=== PATIENT | male | born 1960 | race Caucasian/White ===

== ENCOUNTER 2017-09-10 11:34 | Emergency (ER) | payer BC, SELFPAY ==
[2017-09-10 11:36] VITALS: BP 110/69; PULSE 92; RESP 17; TEMP 37.1; O2SAT 97; BMI 29.2
--- NOTE | 2017-09-10 11:57 | EKG12_ITS ---
Test Reason : SYNCOPE Blood Pressure : / mmHG Vent. Rate : 093 BPM Atrial Rate : 093 BPM P-R Int : 148 ms QRS Dur : 100 ms QT Int : 368 ms P-R-T Axes : 028 -14 -12 degrees QTc Int : 457 ms Normal sinus rhythm ST & T wave abnormality, consider lateral ischemia Abnormal ECG Confirmed by TAM PACE, MARIA ISABEL ([id number]), editor at large YVON POOL ([id number] on 09/13/2017 2:53:49 PM Referred By: [email or web address] Confirmed By:MARIA ISABEL TURCIOS MD
[2017-09-10] MEDS: Ondansetron 4 MG/2 ML Vial IV (12:02)
[2017-09-10] MEDS: 0.9% Normal Saline 1,000 ML 1000 ML IV (12:02)
[2017-09-10] MEDS: Dicyclomine 20 MG/2 ML Vial IM (12:03)
[2017-09-10 12:08] LABS: Absolute Lymphocyte Count 0.33 X10^3/ul (0.83-4.51); Absolute Neutrophil Count 8.9 X10^3/uL (2.0-7.7); Basophil# 0.01 X10^3/uL; Basophil% 0.1 % (0-1); Differential Indicated SCAN CRITERIA MET; Eosinophil# 0.01 X10^3/uL; Eosinophils% 0.1 % (0-5); Hematocrit 44.6 % (40-54); Lymphocyte # 0.33 X10^3/ul (4.0); Lymphocyte % 3.3 % (19-41); Mean Corp Hgb Conc 33.6 g/gl (32-36); Mean Corpuscular Hgb 30.7 pg (27.0-32.0); Mean Corpuscular Volume 91.2 fL (80-94); Mean Platelet Vol. 9.3 fl (6.2-12.0); Monocyte# 0.64 X10^3/uL; Monocyte% 6.5 % (0-10); Neutrophil % 89.9 % (47-70); POSITIVE COUNT NO; POSITIVE DIFFERENTIAL YES; POSITIVE MORPHOLOGY NO; Platelet Count 169 K/mm3 (150-450); RBC Distribution Width CV 12.9 % (11.6-14.6); Red Blood Count 4.89 M/mm3 (4.6-6.2); White Blood Count 9.9 K/mm3 (4.4-11.0)
[2017-09-10 12:18] LABS: Anion Gap 11 (5-15); BUN 20 mg/dL (7-18); BUN/Creat Ratio 18.7 RATIO (10-20); Chloride 109 mmol/L (98-107); Creatinine, Serum 1.07 mg/dL (0.70-1.30); EST Glomerular Filtration Rate 76 mL/min (>60); Est Glom Filt Rate - Afr Amer 92 mL/min (>60); Glucose 155 mg/dL (74-106); Potassium 3.9 mmol/L (3.5-5.1); Sodium Level 139 mmol/L (136-145)
[2017-09-10 12:38] VITALS: BP 114/70; PULSE 89; RESP 16; O2SAT 97
--- NOTE | 2017-09-10 12:38 | ED.VISSUMM ---
- ER Visit Summary Date of Service: 09/10/17 Chief Complaint: Syncope History of Present Illness: The patient is a 56 M who states he worked outside in the heat all weekend. He developed diarrhea last night. After having diarrhea at work today he felt cold, clammy, sweaty, and had tunnel vision. He fell to 1 knee and had diarrhea. He denies falling to the floor any injury. Patient states he did go on a long bike ride yesterday without chest pain, shortness of breath, or lightheadedness. He has had no recent change in activity tolerance. He denies chest pain or palpitations. Physical Examination: Vital signs are unremarkable. Patient sitting upright in bed in no acute distress. Head neck examination reveals dry mucous membranes. Heart is regular rate and rhythm. Lung sounds are clear. Abdomen is soft and nontender. He has hyperactive bowel sounds. Extremity examination reveals equal pulses throughout. Test Results: EKG is sinus at 93 with lateral T-wave inversions. CBC was normal overall white count with 89% neutrophils. Chemistry studies reveal bicarb of 19. His BUN is 20. Glucose is 155. Troponin is less than 0.015. Emergency Department Course and Treatment: Patient was given IV fluids, Zofran, and IM Bentyl. After 2 L of IV fluid BMP was repeated. This is improved with normal bicarb and normal BUN. Patient does feel improved. He will be discharged with a prescription for Bentyl as needed. Because of the EKG changes I will contact his primary care physician, but the patient describes a vasovagal episode and has had no problems with chest pain or activity tolerance. He will follow-up as an outpatient. Treatment Plan: [] Disposition: Discharge Impression: 1. Vasovagal near syncope 2. Diarrhea 3. Dehydration This note was generated with i4[employer] dictation software. It may contain incorrect words, spelling, and punctuation that were not noted in review of the chart prior to signing ED Disposition - Plan for ED Patient: Chief Complaint: Syncope Referrals: Spike Enamorado MD [Primary Care Provider] -
[2017-09-10 13:16] VITALS: BP 117/72; PULSE 85; RESP 16; O2SAT 97
[2017-09-10] MEDS: 0.9% Normal Saline 1,000 ML 999 ML IV (13:21)
[2017-09-10 14:00] VITALS: BP 125/71; PULSE 86; RESP 13; O2SAT 98
[2017-09-10 15:11] LABS: Anion Gap 6 (5-15); BUN 18 mg/dL (7-18); Calcium,Total 7.9 mg/dL (8.5-10.1); Chloride 112 mmol/L (98-107); Creatinine, Serum 0.95 mg/dL (0.70-1.30); EST Glomerular Filtration Rate 87 mL/min (>60); Est Glom Filt Rate - Afr Amer 106 mL/min (>60); Estimated Creatinine Clearance 92.47 ml/min; Glucose 107 mg/dL (74-106); Potassium 4.5 mmol/L (3.5-5.1); Sodium Level 141 mmol/L (136-145)
[2017-09-10 15:19] VITALS: BP 134/83; PULSE 87; RESP 21; O2SAT 98
--- NOTE | 2017-09-10 15:33 | ED.DEP ---
ED Disposition - Plan for ED Patient: Disposition: Home or Assisted Living Chief Complaint: Syncope Instructions: ED Near Syncope Vasovagal, ED Dehydration Prescriptions: Dicyclomine HCl [Bentyl] 20 mg PO TIDAC #20 capsule Referrals: Spike nEamorado MD [Primary Care Provider] - As soon as possible
--- NOTE | 2017-09-10 15:36 | DCINST.ED_ITS ---
ED Disposition - Plan for ED Patient: Disposition: Home or Assisted Living Chief Complaint: Syncope Instructions: ED Near Syncope Vasovagal, ED Dehydration Prescriptions: Dicyclomine HCl [Bentyl] 20 mg PO TIDAC #20 capsule Referrals: Spike Enamorado MD [Primary Care Provider] - As soon as possible
[2017-09-10 15:43] VITALS: BP 137/82; PULSE 89; RESP 15; O2SAT 97
== END 2017-09-10 15:44 | disposition home or self-care (01) ==
PROVIDERS: Emergency Provider Emergency Medicine; Family Provider Family Medicine; PCP Family Medicine
DX: R55 Syncope and collapse (principal); R19.7 Diarrhea, unspecified; E86.0 Dehydration; F32.9 Major depressive disorder, single episode, unspecified; Z87.891 Personal history of nicotine dependence; Z79.899 Other long term (current) drug therapy
CPT/HCPCS: 80048; 84484; 85025; 93005; 96361; 96372; 96374; 99285; J7030; A4216; J2405